=== PATIENT | female | born 1970 | race Caucasian/White ===

== ENCOUNTER → 2018-02-10 | Outpatient (CLI) | payer OTHER ==
[~2018-02-10] MED LIST: (None)15 G1 EXT; ACET325 PO; ACET500 PO; ADAL40PEN; ADAL40PEN SC; ADVIL MIGRAINE; ALBU90OI61 INH; AMIT50 PO; AMOCLA875 PO; ANTIFUNGAL CREA14 GM VAG; APRISO; APRISO PO; AZAT50 PO; AZATHIOPRINE; BREO ELLIPTA 11 EACH; CALCPOTTC; CANASA; CANASA PR; CEPH500 PO; CIPR500 PO; CLIN150 PO; CRUTCH4 USE; Cipro500 MG PO; Cleocin HCl150 MG PO; DICY20 PO; ERGO400; ESTR25VT PV; EXCEDRIN MIGRAINE; Excedrin Extra1 EACH PO; FENUGREEK; FERR325 PO; GABA400 PO; HYDACE10B PO; HYDACE25S; HYDACE5325 PO; HYDR1TAB94 PO; HYDR25SUP PR; HYOMAX; IBUP400 PO; IBUP800 PO; INFLIXIMAB; LANS30EC PO; LIDO5TO TOP; LOPE2C PO; LORA.5; LORA1 PO; LORA2 PO; MESA250ER PO; MESA400ER PO; METERG.2; METR500 PO; MORP30; MORP30ER PO; MULVITMINE; MULVITMINE PO; MUPI2TO TOP; Norco 5-325 Ta1 EACH PO; OMEP20ER PO; OMEPRAZOLE MAGN20 MG PO; ONDA4ODT MM; OTC SLEEP AID; OXYACE5T PO; OXYACE7.5T PO; OXYC5 PO; PARO20 PO; PRAHYD1AE TOP; PRED1 PO; PRED20 PO; PREN-16 PO; PROBIOTIC1 EAC1 PO; PROC10 PO; PROG100 PO; Percocet 5-3251 EACH PO; Prednisone20 MG PO; RANI150 PO; REMICADE; REMICADE INJ; RIFA550T2 PO; RXHYDMOR2 PO; Restoril7.5 MG; SACC250C PO; SLEEP AID PO; STOMUL; SULTRIDS PO; TEMA15 PO; VENL150ER PO; VENL75ER PO
[2018-02-10 10:38] LABS: Adenovirus F 40/41 Not Detected (NOT DETECT); Astrovirus Not Detected (NOT DETECT); Campylobacter Sp Not Detected (NOT DETECT); Cryptosporidium Not Detected (NOT DETECT); Cyclospora Cayetanensis Not Detected (NOT DETECT); E. Coli O157 Not Detected (NOT DETECT); Entamoeba Histolytica Not Detected (NOT DETECT); Enteroaggregative E. coli-EAEC Not Detected (NOT DETECT); Enteropathogenic E. coli-EPEC Not Detected (NOT DETECT); Enterotoxigenic E. coli-ETEC Not Detected (NOT DETECT); Giardia Lamblia Not Detected (NOT DETECT); Norovirus GI/GII Not Detected (NOT DETECT); Plesiomonas Shigelloides Not Detected (NOT DETECT); Rotavirus A Not Detected (NOT DETECT); Salmonella Sp Not Detected (NOT DETECT); Sapovirus Not Detected (NOT DETECT); Shiga Toxin-prod E. coli-STEC Not Detected (NOT DETECT); Shigella/Enteroin E. coli-EIEC Not Detected (NOT DETECT); Vibrio Cholerae Not Detected (NOT DETECT); Vibrio Sp Not Detected (NOT DETECT); Yersinia Enterocolitica Not Detected (NOT DETECT)
== END ==
LOC: LAB SHORT 10:35 → OLS 10:35 → LAB FUT 02-08 15:35 → EDSTATUS 02-08 15:35
PROVIDERS: Internal Medicine Gastroenterology
DX: K91.850 Pouchitis (principal); K51.019 Ulcerative (chronic) pancolitis with unspecified complications
CPT/HCPCS: 87507

== ENCOUNTER → 2019-01-25 | Outpatient (CLI) | payer BC | END | disposition home or self-care (01) | LOC: LAB SHORT 15:48 → LAB 15:48 | DX: N39.0 Urinary tract infection, site not specified (principal) | CPT/HCPCS: 87086 ==

== ENCOUNTER 2023-09-02 12:17 | Emergency (ER) | payer OTHER ==
[~2023-09-02] VITALS: Ht 170.2 cm; Wt 104.3 kg
[~2023-09-02 12:17] MED LIST changes: +DULO60 PO; +Diflucan150 MG; +ESTRADIOL IL; +Neurontin600 MG PO; +PROGESTERONE200 M1 PO
[2023-09-02 13:02] LABS: Hematocrit 46.2 % (33.0-51.0); Hemoglobin 15.5 g/dL (11.5-16.0); Mean Corpuscular HGB 32.6 pg (26.0-34.0); Mean Corpuscular HGB Conc 33.5 g/dL (31.5-36.5); Mean Corpuscular Volume 97 fL (80-100); Mean Platelet Volume 9.8 fL (9.1-12.4); Platelet Count 329 K/mm3 (150-400); RDW Coefficient Variation 13.2 % (11.7-14.2); RDW Standard Deviation 47.2 fL (35.1-46.3); Red Blood Cell Count 4.76 M/mm3 (3.80-5.20); White Blood Cell Count 8.96 K/mm3 (4.00-11.30)
[2023-09-02 13:21] LABS: BAND PERCENT MAN 9 % (0-8); BASOPHILS PERCENT MAN 0 % (0-2); EOSINOPHILS PERCENT MAN 0 % (0-6); LYMPHOCYTES % ATYPICAL MANUAL 1 % (0-0); LYMPHOCYTES ABSOLUTE MAN 1.52 K/mm3 (0.84-5.20); LYMPHOCYTES PERCENT MAN 16 % (21-46); METAMYELOCYTE ABSOLUTE MAN 0.62 K/mm3 (0.00-0.00); METAMYELOCYTE PERCENT MAN 7 % (0-0); MONOCYTES PERCENT MAN 9 % (4-13); MYELOCYTE ABSOLUTE MAN 0.26 K/mm3 (0.00-0.00); MYELOCYTE PERCENT MAN 3 % (0-0); NEUTROPHILS ABSOLUTE MAN 5.73 K/mm3 (1.96-9.15); SEG NEUTROPHILS PERCENT MAN 55 % (41-73); TOTAL CELLS COUNTED 100
[2023-09-02 13:29] LABS: Albumin, Blood 3.5 g/dL (3.4-5.0); Albumin/Globulin Ratio 0.7 (0.8-1.8); Bilirubin, Total 0.4 mg/dL (0.1-1.0); Bun/Creatinine Ratio 24.3 (12.0-20.0); Calcium, Blood 9.7 mg/dL (8.5-10.1); Creatinine, Blood 1.69 mg/dL (0.40-1.00); Potassium, Blood 5.2 mmol/L (3.5-5.5); Total Protein, Blood 8.5 g/dL (6.4-8.2)
[2023-09-02] MEDS ORDERED: OXYC5 (13:33)
[2023-09-02] MEDS ORDERED: Xifaxan200 MG (13:33)
[2023-09-02] MEDS ORDERED: MULTI-VITAMIN1 EAC2 PO (13:33)
[2023-09-02] MEDS ORDERED: ROPI.25 (13:33)
[2023-09-02 14:08] LABS: Campylobacter Sp Detected (NOT DETECT)
[2023-09-02 14:09] LABS: Adenovirus F 40/41 Not Detected (NOT DETECT); Astrovirus Not Detected (NOT DETECT); Cryptosporidium Not Detected (NOT DETECT); Cyclospora Cayetanensis Not Detected (NOT DETECT); E. Coli O157 Not Detected (NOT DETECT); Entamoeba Histolytica Not Detected (NOT DETECT); Enteroaggregative E. coli-EAEC Not Detected (NOT DETECT); Enteropathogenic E. coli-EPEC Not Detected (NOT DETECT); Enterotoxigenic E. coli-ETEC Not Detected (NOT DETECT); Giardia Lamblia Not Detected (NOT DETECT); Norovirus GI/GII Not Detected (NOT DETECT); Plesiomonas Shigelloides Not Detected (NOT DETECT); Rotavirus A Not Detected (NOT DETECT); Salmonella Sp Not Detected (NOT DETECT); Sapovirus Not Detected (NOT DETECT); Shiga Toxin-prod E. coli-STEC Not Detected (NOT DETECT); Shigella/Enteroin E. coli-EIEC Not Detected (NOT DETECT); Vibrio Cholerae Not Detected (NOT DETECT); Vibrio Sp Not Detected (NOT DETECT); Yersinia Enterocolitica Not Detected (NOT DETECT)
[2023-09-02] MEDS ORDERED: DICY20 PO (16:41)
[2023-09-02] MEDS ORDERED: HYDR1TAB94 PO (17:09)
[2023-09-02 19:58] VITALS: BP 141/89
== END 2023-09-02 19:57 | disposition home or self-care (01) ==
LOC: ER 12:17
PROVIDERS: Emergency Medicine
DX: A04.5 Campylobacter enteritis (principal); N17.9 Acute kidney failure, unspecified; E86.0 Dehydration; Z79.899 Other long term (current) drug therapy; M06.9 Rheumatoid arthritis, unspecified; Z87.891 Personal history of nicotine dependence
CPT/HCPCS: 74177; 80053; 83690; 85025; 87507; 96361; 96374; 96375; 99284-25; A9270; J2270; J2405; J7030; Q9967

== ENCOUNTER 2023-10-25 01:26 | Emergency (ER) | payer OTHER ==
[~2023-10-25] VITALS: Ht 170.2 cm; Wt 107.0 kg
[~2023-10-25 01:26] MED LIST changes: +MULTI-VITAMIN1 EAC2 PO; +OXYC5; +ROPI.25; +Xifaxan200 MG
[2023-10-25 04:00] VITALS: BP 132/90
== END 2023-10-25 04:30 | disposition home or self-care (01) ==
LOC: ER 01:26
DX: S83.91XA Sprain of unspecified site of right knee, initial encounter (principal); M06.9 Rheumatoid arthritis, unspecified; K50.90 Crohn's disease, unspecified, without complications; Z79.899 Other long term (current) drug therapy; W18.30XA Fall on same level, unspecified, initial encounter; Y92.000 Kitchen of unspecified non-institutional (private) residence as the place of occurrence of the external cause
CPT/HCPCS: 29505; 73562-RT; 96374-59; 96375-59; 99284-25; A9270; J1885; J2405

== ENCOUNTER → 2024-03-30 | Outpatient (CLI) | payer OTHER ==
[~2024-03-30] MED LIST changes: +OXYCODONE-ACET1 EAC3 UD
[2024-03-31 17:19] LABS: U Amphetamine Screen Not Detected; U Barbituate Screen Not Detected; U Benzodiazapine Screen Not Detected; U Buprenorphine Screen Not Detected; U Cannabinoids Screen DETECTED; U Cocaine Screen Not Detected; U Methadone Screen Not Detected; U Methamphetamine Screen Not Detected; U Opiates Screen Not Detected; U Oxycodone Screen DETECTED; U Phencyclidine Screen Not Detected
== END | disposition home or self-care (01) ==
LOC: LAB 15:30 → LAB SHORT 15:30 → EDSTATUS 03-31 15:10 → LAB FUT 03-31 15:10
PROVIDERS: Family Medicine
DX: Z51.81 Encounter for therapeutic drug level monitoring (principal); Z79.891 Long term (current) use of opiate analgesic

== ENCOUNTER 2024-11-03 19:35 | Emergency (ER) | payer OTHER ==
[~2024-11-03] VITALS: Ht 170.2 cm; Wt 117.9 kg
[2024-11-03 19:58] VITALS: BP 184/111
[2024-11-03] MEDS ORDERED: Ketorolac Tromethamine 30mg Vial IM ONE (21:25)
[2024-11-03] MEDS ORDERED: Mobic15 MG PO (21:30)
== END 2024-11-03 21:43 | disposition home or self-care (01) ==
LOC: ER 19:35
DX: S76.012A Strain of muscle, fascia and tendon of left hip, initial encounter (principal); S39.012A Strain of muscle, fascia and tendon of lower back, initial encounter; M06.9 Rheumatoid arthritis, unspecified; Z98.890 Other specified postprocedural states; Z90.49 Acquired absence of other specified parts of digestive tract; Z79.899 Other long term (current) drug therapy; X58.XXXA Exposure to other specified factors, initial encounter
CPT/HCPCS: 96372; 99283-25; J1885

== ENCOUNTER → 2024-11-24 | Outpatient (CLI) | payer OTHER ==
[~2024-11-24] MED LIST changes: +Mobic15 MG PO
[2024-11-24 18:27] LABS: U Amphetamine Screen Not Detected; U Barbituate Screen Not Detected; U Benzodiazapine Screen Not Detected; U Buprenorphine Screen Not Detected; U Cannabinoids Screen DETECTED; U Cocaine Screen Not Detected; U Methadone Screen Not Detected; U Methamphetamine Screen Not Detected; U Opiates Screen DETECTED; U Oxycodone Screen Not Detected; U Phencyclidine Screen Not Detected
== END ==
LOC: LAB SHORT 15:47 → LAB 15:47
PROVIDERS: Family Medicine
DX: Z51.81 Encounter for therapeutic drug level monitoring (principal); Z79.891 Long term (current) use of opiate analgesic

== ENCOUNTER → 2024-12-12 | Outpatient (CLI) | payer OTHER ==
[~2024-12-12] MED LIST changes: +CYCL10 PO; +MORP15ER PO; -ROPI.25; +ROPI.25 PO; +SERT100 PO; +TOPICAINE113 GM TOP; +TRAM50 PO
== END ==
LOC: LAB SHORT 12:59 → LAB 12:59
DX: S91.302A Unspecified open wound, left foot, initial encounter (principal)
CPT/HCPCS: 87070; 87075; 87077; 87186; 87205

== ENCOUNTER 2024-12-22 09:51 | Day surgery (SDC) | payer OTHER ==
[~2024-12-22] VITALS: Ht 170.2 cm; Wt 108.0 kg
[2024-12-22] VITALS (18 sets, daily range): BP systolic 117–152; BP diastolic 62–94
[~2024-12-22 09:51] MED LIST changes: +Aspir 8181 MG PO; -CYCL10 PO; +Cyclobenzaprine5 MG PO; +GABA600 PO; -ROPI.25 PO; +ROPI1 PO; +TRAZ100 PO; -Xifaxan200 MG
[2024-12-22] MEDS ORDERED: Chlorhexidine Mouth Care 15 ML UDC MT SCH (10:05)
[2024-12-22] MEDS ORDERED: Tranexamic Acid 100 ML IV SCH (10:05)
[2024-12-22] MEDS ORDERED: Lactated Ringer's 1,000 ML IV SCH ×2 (10:05→10:45)
[2024-12-22] MEDS ORDERED: OxyCODONE HCL 10 MG TABCR PO SCH (10:05)
[2024-12-22] MEDS ORDERED: CeFAZolin Sodium 2,000 MG in NS 100 ML IV SCH ×2 (10:05→20:00)
[2024-12-22] MEDS ORDERED: Acetaminophen 500 MG Tab PO SCH ×2 (10:05→16:00)
[2024-12-22] MEDS ORDERED: Ropivacaine 0.5% HCl/Pf 123.125 MG,EPINEPHrine HCL 0.25 MG,Ketorolac Tromethamine 15 MG... INFIL SCH (10:05)
[2024-12-22] MEDS ORDERED: Cyclobenzaprine HCl 10 MG Tab PO PRN (10:30)
[2024-12-22] MEDS ORDERED: Loperamide HCl 2 MG Cap PO PRN (10:30)
[2024-12-22] MEDS ORDERED: propofoL 20 ML IV ONE ×4 (10:32→13:33)
[2024-12-22] MEDS ORDERED: FentaNYL Citrate 50 MCG/ML 2 ML Injection ONE ×2 (10:32→14:13)
[2024-12-22] MEDS ORDERED: Midazolam HCl 1MG / ML 2ML Vial ONE (10:32)
[2024-12-22] MEDS ORDERED: DiphenhydrAMINE HCL 25 MG Cap PO PRN (10:35)
[2024-12-22] MEDS ORDERED: Bisacodyl 10 MG Supp PR PRN (10:35)
[2024-12-22] MEDS ORDERED: HYDROmorphone HCl/Pf 1MG SYR IV PRN ×3 (10:40→12:25)
[2024-12-22] MEDS ORDERED: FLU VACC TS2024-25(6MOS UP)/PF 45 MCG/0.5 ML SYRINGE IM SCH (10:40)
[2024-12-22] MEDS ORDERED: Promethazine HCl 25 MG Tab PO PRN (10:40)
[2024-12-22] MEDS ORDERED: Magnesium Hydroxide Conc 10 ML UDC PO PRN (10:45)
[2024-12-22] MEDS ORDERED: OxyCODONE HCL 5 MG TAB PO PRN ×2 (10:45)
[2024-12-22] MEDS ORDERED: Ondansetron HCl 2 MG / ML 2ML Vial IV PRN ×2 (10:45→12:20)
[2024-12-22] MEDS ORDERED: Metoclopramide HCl 5MG / ML 2ML Vial IV PRN (10:45)
[2024-12-22] MEDS ORDERED: Ketorolac Tromethamine 15mg Vial IV SCH (12:00)
[2024-12-22] MEDS ORDERED: ePHEDrine Sulfate 50 MG/ML 1ML Injection IV PRN (12:20)
[2024-12-22] MEDS ORDERED: Albuterol 2.5 MG/3 ML VIAL INH PRN (12:25)
[2024-12-22] MEDS ORDERED: FentaNYL Citrate 50 MCG/ML 2 ML Injection IV PRN ×2 (12:25)
[2024-12-22] MEDS ORDERED: HYDROmorphone HCl/Pf 1MG SYR ONE (13:39)
--- NOTE | 2024-12-22 15:41 | NUR ---
PT ARRIVED TO UNIT AT APROX 1615. PT POD 0 R TKA. PT REPORTS FULL SENSATION TO BLE AND MOVING BLE W/O DIFFICULTY. NGOZI WRAP TO LLE C/D/I. PT REPORTS PAIN /10, PT RECIEVED TOTAL 100MCG FENT IN PACU. PT IS A/O X'S 4. LUNGS CLEAR, O2 SAT 94% ON RA. PT GIVEN CLEAR LIQUIDS AND JELLO, WILL ADVANCE TOLERATED. REPORT GIVEN TO PRIMARY RN AT APROX 1545 FOR ASSUMPTION OF CARE.
--- NOTE | 2024-12-22 17:44 | NUR ---
SHIFT SUMMARY NO ACUTE CHANGES SINCE ARRIVAL TO UNIT. PATIENT ALERT AND ORIENTED X4. COMMUNICATES NEEDS EFFECTIVELY. S/P R TKA WITH SPINAL - REPORTS FULL SENSATION, ABLE TO MOVE BLE. MANAGING PAIN PER EMAR AND WITH COOLING DEVICE. VSS. ON ROOM AIR, SATs >90%. AQUACEL AND NGOZI WRAP DRESSING C/D/I - NO SHADOWING NOTED. TOLERATING PO INTAKE. AWAITING SPONTANEOUS VOID POST SPINAL - BLADDER SCAN IN PACU SHOWING 190s. HAS YET TO AMBULATE POST OP. CALL LIGHT IN REACH.
[2024-12-22] MEDS ORDERED: Docusate Sodium 100 MG Cap PO SCH (21:00)
[2024-12-22] MEDS ORDERED: rOPINIRole HCl 1 MG Tab PO SCH (21:00)
[2024-12-22] MEDS ORDERED: RifAXIMin 550 MG Tablet PO SCH (21:00)
[2024-12-22] MEDS ORDERED: TraZODone HCl 100 MG Tab PO SCH (21:00)
[2024-12-22] MEDS ORDERED: Calcium Carbonate 500 MG Tab Chew PO PRN (22:45)
[2024-12-23] MEDS ORDERED: Gabapentin 400 MG Cap PO SCH ×2 (01:15→09:00)
[2024-12-23 03:56] VITALS: BP 124/83
[2024-12-23 05:16] LABS: BASOPHILS ABSOLUTE AUTO 0.01 K/mm3 (0.00-0.23); BASOPHILS PERCENT AUTO 0 % (0-2); EOSINOPHILS ABSOLUTE AUTO 0.02 K/mm3 (0.00-0.68); EOSINOPHILS PERCENT AUTO 0 % (0-6); Hematocrit 30.9 % (33.0-51.0); Hemoglobin 9.9 g/dL (11.5-16.0); IMMATURE GRAN ABSOLUTE AUTO 0.08 K/mm3 (0.00-0.10); IMMATURE GRAN PERCENT AUTO 1 % (0-1); LYMPHOCYTES ABSOLUTE AUTO 1.18 K/mm3 (0.84-5.20); LYMPHOCYTES PERCENT AUTO 13 % (21-46); MONOCYTES ABSOLUTE AUTO 1.03 K/mm3 (0.16-1.47); MONOCYTES PERCENT AUTO 11 % (4-13); Mean Corpuscular HGB 31.5 pg (26.0-34.0); Mean Corpuscular Volume 98 fL (80-100); NEUTROPHILS ABSOLUTE AUTO 7.12 K/mm3 (1.96-9.15); NEUTROPHILS PERCENT AUTO 76 % (41-73); Platelet Count 201 K/mm3 (150-400); RDW Coefficient Variation 13.2 % (11.7-14.2); RDW Standard Deviation 47.5 fL (35.1-46.3); Red Blood Cell Count 3.14 M/mm3 (3.80-5.20); White Blood Cell Count 9.44 K/mm3 (4.00-11.30)
[2024-12-23 05:42] LABS: Bun/Creatinine Ratio 15.7 (12.0-20.0); Calcium, Blood 8.5 mg/dL (8.5-10.1); Creatinine, Blood 1.02 mg/dL (0.40-1.00); Potassium, Blood 4.1 mmol/L (3.5-5.5)
--- NOTE | 2024-12-23 06:27 | NUR ---
SHIFT SUMMARY POD 1 S/P RIGHT TKA. AQUACEL AND NGOZI WRAP TO RIGHT KNEE CDI. CYRO THERAPY IN PLACE TOLERATED. PT AMBULATING TO BATHROOM WITH SBA, FWW, GB. PAIN MANAGED PER EMAR. KEMI PO INTAKE, DENIES N/V. IS VOIDING, REPORTS 2 BM'S DURING NIGHT. IS AOX4 WTH VSS. ABX INFUSED PER ORDER. IV PATENT AND SL. IS CURRENTLY DRESSED AND UP IN CHAIR AT THIS TIME. HAS CALL LIGHT IN REACH. ABLE TO MAKE NEEDS KNOWN. PLAN TO WORK WITH THERAPY AND D/C HOME TODAY. WILL GIVE REPORT TO ONCOMING.
[2024-12-23 07:46] VITALS: BP 111/80
[2024-12-23] MEDS ORDERED: DULoxetine HCL 60 MG Capsule DR PO SCH (09:00)
[2024-12-23] MEDS ORDERED: Apixaban 5 MG Tab PO SCH (09:00)
[2024-12-23] MEDS ORDERED: ELIQUIS2.5 MG PO (09:04)
--- NOTE | 2024-12-23 09:42 | NUR ---
DISCHARGE: PACKET PRINTED AND PT EDUCATED. IV DC'D WNL TIP INTACT. PT GIVEN SURGICAL DRESSINGS. VERBALIZED UNDERSTANDING OF DC INSTRUCTIONS. DC'D IN WHEELCHAIR WITH ANDERSON ROUSE
[2024-12-23] MEDS ORDERED: Gabapentin 300 MG Cap PO PRN (12:00)
== END 2024-12-23 09:55 | disposition home or self-care (01) ==
LOC: ORSCMMR 09:51 → ORD 12:30 → SURS 15:16 → ORSCMMR 12-23 09:55
PROVIDERS: Orthopaedic Surgery
PROC: 0SRC0JA Replacement of Right Knee Joint with Synthetic Substitute, Uncemented, Open Approach (ICD-10-PCS; principal; 2024-12-22 12:30)
DX: M17.11 Unilateral primary osteoarthritis, right knee (principal); I10 Essential (primary) hypertension; G47.33 Obstructive sleep apnea (adult) (pediatric); Z98.84 Bariatric surgery status; Z79.899 Other long term (current) drug therapy
CPT/HCPCS: 36415; 73560-RT; 80048; 84703; 85025; 94760; 97110; 97116; 97161; 97530; A9270; C1713; C1776; J0171; J0690; J0735; J1171; J1885; J2250; J2704; J2795; J3010; J7120

== ENCOUNTER → 2025-01-11 | Outpatient (CLI) | payer OTHER ==
[~2025-01-11] MED LIST changes: +ELIQUIS2.5 MG PO
[2025-01-11 17:05] LABS: U Amphetamine Screen Not Detected; U Barbituate Screen Not Detected; U Benzodiazapine Screen Not Detected; U Buprenorphine Screen Not Detected; U Cannabinoids Screen DETECTED; U Cocaine Screen Not Detected; U Methadone Screen Not Detected; U Methamphetamine Screen Not Detected; U Opiates Screen DETECTED; U Oxycodone Screen Not Detected; U Phencyclidine Screen Not Detected
== END ==
LOC: LAB 11:15 → LAB SHORT 11:15
PROVIDERS: Family Medicine
DX: Z79.891 Long term (current) use of opiate analgesic (principal)

== ENCOUNTER → 2025-01-20 | Outpatient (CLI) | payer OTHER ==
[2025-01-20 11:32] LABS: Appearance, Urine Clear (Clear); Bilirubin, Urine Neg (Neg); Blood, Urine Neg (Neg); Color, Urine Yellow (P-Yellow); Glucose Qualitative, Urine Neg (Neg); Ketones, Urine Neg (Neg); Leukocyte Esterase, Urine Neg (Neg); Nitrite, Urine Neg (Neg); Protein, Urine 1+ (Neg); Urobilinogen, Urine NORM (Normal)
[2025-01-20 12:11] LABS: Protein, Urine Random 27.8 mg/dL (0.0-11.9); Protein/Creat Ratio, Ur Random 0.2
== END ==
LOC: LAB 08:30 → LAB SHORT 08:30 → LAB FUT 09-23 09:55
PROVIDERS: Hospitalist
DX: N17.9 Acute kidney failure, unspecified (principal)
CPT/HCPCS: 82570; 84156

== ENCOUNTER → 2025-05-18 | Outpatient (CLI) | payer OTHER ==
[2025-05-18 17:57] LABS: U Amphetamine Screen Not Detected; U Barbituate Screen Not Detected; U Benzodiazapine Screen DETECTED; U Buprenorphine Screen Not Detected; U Cannabinoids Screen Not Detected; U Cocaine Screen Not Detected; U Methadone Screen Not Detected; U Methamphetamine Screen Not Detected; U Opiates Screen Not Detected; U Oxycodone Screen DETECTED; U Phencyclidine Screen Not Detected
== END ==
LOC: LAB 16:50 → LAB SHORT 16:50
PROVIDERS: Family Medicine
DX: Z51.81 Encounter for therapeutic drug level monitoring (principal); Z79.891 Long term (current) use of opiate analgesic

== ENCOUNTER → 2025-05-26 | Outpatient (CLI) | payer OTHER ==
[2025-05-26 16:11] LABS: U Amphetamine Screen Not Detected; U Barbituate Screen Not Detected; U Benzodiazapine Screen Not Detected; U Buprenorphine Screen Not Detected; U Cannabinoids Screen Not Detected; U Cocaine Screen Not Detected; U Methadone Screen Not Detected; U Methamphetamine Screen Not Detected; U Opiates Screen Not Detected; U Oxycodone Screen DETECTED; U Phencyclidine Screen Not Detected
[2025-05-30 22:43] LABS: 6-ACETYLMORPHINE, URN, QUANT <10 ng/mL; CODEINE, URN, QUANT <20 ng/mL; HYDROCODONE, URN, QUANT <20 ng/mL; HYDROMORPHONE, URN, QUANT <20 ng/mL; MORPHINE, URN, QUANT <20 ng/mL; NORHYDROCODONE, URN, QUANT <20 ng/mL; NOROXYCODONE, URN, QUANT >4000 ng/mL; NOROXYMORPHONE, URN, QUANT 559 ng/mL; OXYCODONE, URN, QUANT 2431 ng/mL; OXYMORPHONE, URN, QUANT 40 ng/mL
== END ==
LOC: LAB 15:26 → LAB SHORT 15:26
PROVIDERS: Family Medicine
DX: Z51.81 Encounter for therapeutic drug level monitoring (principal); Z79.891 Long term (current) use of opiate analgesic
CPT/HCPCS: G0480

== ENCOUNTER → 2025-06-22 | Outpatient (CLI) | payer OTHER ==
[2025-06-22 17:54] LABS: U Amphetamine Screen Not Detected; U Barbituate Screen Not Detected; U Benzodiazapine Screen Not Detected; U Buprenorphine Screen Not Detected; U Cannabinoids Screen Not Detected; U Cocaine Screen Not Detected; U Methadone Screen Not Detected; U Methamphetamine Screen Not Detected; U Opiates Screen Not Detected; U Oxycodone Screen DETECTED; U Phencyclidine Screen Not Detected
== END ==
LOC: LAB SHORT 11:59 → LAB 11:59
PROVIDERS: Family Medicine
DX: Z51.81 Encounter for therapeutic drug level monitoring (principal); Z79.891 Long term (current) use of opiate analgesic

== ENCOUNTER → 2025-07-07 | Outpatient (CLI) | payer OTHER ==
[2025-07-07 19:56] LABS: U Amphetamine Screen Not Detected; U Barbituate Screen Not Detected; U Benzodiazapine Screen Not Detected; U Buprenorphine Screen Not Detected; U Cannabinoids Screen Not Detected; U Cocaine Screen Not Detected; U Methadone Screen Not Detected; U Methamphetamine Screen Not Detected; U Opiates Screen Not Detected; U Oxycodone Screen DETECTED; U Phencyclidine Screen Not Detected
== END ==
LOC: LAB SHORT 17:25 → LAB 17:25
PROVIDERS: Family Medicine
DX: Z02.81 Encounter for paternity testing (principal)

== ENCOUNTER → 2025-07-25 | Outpatient (CLI) | payer OTHER ==
[2025-07-25 17:12] LABS: U Amphetamine Screen Not Detected; U Barbiturate Screen Not Detected; U Benzodiazapine Screen Not Detected; U Buprenorphine Screen Not Detected; U Cannabinoids Screen Not Detected; U Cocaine Screen Not Detected; U Methadone Screen Not Detected; U Methamphetamine Screen Not Detected; U Opiates Screen Not Detected; U Oxycodone Screen DETECTED; U Phencyclidine Screen Not Detected
== END ==
LOC: LAB 15:41 → LAB SHORT 15:41
PROVIDERS: Family Medicine
DX: Z02.89 Encounter for other administrative examinations (principal)

== ENCOUNTER → 2025-08-22 | Outpatient (CLI) | payer OTHER | LOC: LAB 13:58 → LAB SHORT 13:58 | DX: N39.0 Urinary tract infection, site not specified (principal) | CPT/HCPCS: 87086 ==